=== PATIENT | female | born 1955 | race Caucasian/White ===

== ENCOUNTER 2021-07-08 06:30 | Inpatient (IN) | payer MEDICARE ==
[2021-07-08] MEDS ORDERED: Povidone-Iodine 10% Soln 118.25 ML Bottle ONE (06:51)
[2021-07-08] MEDS ORDERED: Lactated Ringers 1,000 ML IV SCH (07:00)
[2021-07-08] MEDS ORDERED: fentaNYL 100 MCG/2 ML SDV ONE (07:27)
[2021-07-08] MEDS ORDERED: Midazolam 1 MG/ML 2 ML SDV ONE ×2 (07:27→10:01)
[2021-07-08] MEDS ORDERED: Propofol 200 MG/20 ML SDV ONE ×2 (07:27→09:45)
[2021-07-08] MEDS ORDERED: diphenhydrAMINE 50 MG/ML SDV ONE (07:29)
[2021-07-08] MEDS ORDERED: Nozin Nasal Sanitizer NASBOTH ONE (07:30)
[2021-07-08] MEDS ORDERED: ceFAZolin 2 GM in Premix Bag 1 BAG IV ONE (08:30)
[2021-07-08] MEDS ORDERED: SODIUM CHLORIDE 0.9% IV ONE (08:30)
[2021-07-08] MEDS ORDERED: TRANEXAMIC ACID IV ONE (08:30)
[2021-07-08] MEDS ORDERED: Lactated Ringers 1,000 ML ONE (09:00)
[2021-07-08] MEDS ORDERED: Magnesium Hydroxide 400 MG/5 ML Susp 30 ML Cup PO PRN (10:50)
[2021-07-08] MEDS ORDERED: Acetaminophen/HYDROcodone 325-5 MG Tab PO PRN (10:50)
[2021-07-08] MEDS ORDERED: Morphine 2 MG/ML SYRINGE IVPUSH ONE (11:10)
[2021-07-08] MEDS: oxyCODONE 5 MG Tab PO PRN ×3 (12:16→21:59)
[2021-07-08] MEDS: Acetaminophen 325 MG Tab PO SCH ×2 (12:16→18:14)
[2021-07-08] MEDS: Ketorolac 30 MG/ML SDV IVPUSH PRN ×2 (13:00→19:49)
[2021-07-08] MEDS: Morphine 2 MG/ML SYRINGE IV PRN ×3 (13:01→15:09)
[2021-07-08] MEDS: Sodium Chloride 0.9% 1,000 ML IV SCH ×2 (14:06→22:25)
[2021-07-08] MEDS: ceFAZolin 1 GM in Premix Bag 1 BAG IV SCH (15:58)
[2021-07-08] MEDS ORDERED: HYDROmorphone 0.5 MG/0.5 ML Syringe IVPUSH PRN (16:07)
[2021-07-08] MEDS: Ondansetron 4 MG/2 ML SDV IVPUSH PRN (19:44)
[2021-07-08] MEDS: Nozin Nasal Sanitizer NASBOTH SCH (21:58)
[2021-07-08] MEDS: Docusate Sodium 100 MG Cap PO SCH (21:58)
[2021-07-08] MEDS: Pantoprazole 40 MG Tab.CR PO SCH (21:58)
[2021-07-08] MEDS: Rosuvastatin 10 MG Tab PO SCH (21:59)
[2021-07-09] MEDS: Acetaminophen 325 MG Tab PO SCH ×4 (00:52→21:13)
[2021-07-09] MEDS: ceFAZolin 1 GM in Premix Bag 1 BAG IV SCH ×2 (00:52→07:32)
[2021-07-09] MEDS: oxyCODONE 5 MG Tab PO PRN ×5 (02:08→18:31)
[2021-07-09] MEDS: Ketorolac 30 MG/ML SDV IVPUSH PRN ×2 (05:52→21:19)
[2021-07-09] MEDS: Ondansetron 4 MG/2 ML SDV IVPUSH PRN (07:36)
--- NOTE | 2021-07-09 08:12 | PCM.SURGPN ---
- General Info Date of Service: 07/09/21 Date of Surgery/Procedure: 07/08/21 POD#: 1 Post-Op Diagnosis: s/p L ALBIN Admission Diagnosis/Problem: Hip pain (s/p left total hip arthroplasty ) Functional Status: Reports: Pain Controlled, Ambulating ([facility] FWW x1 assist ) - Review of Systems General: Denies: Fever, Fatigue, Chills HEENT: Denies: Visual Changes Pulmonary: Denies: Shortness of Breath Cardiovascular: Denies: Chest Pain, Palpitations, Lightheadedness Gastrointestinal: Reports: Nausea. Denies: Vomiting Musculoskeletal: Reports: Leg Pain (left ), Joint Pain (left hip ) Skin: Reports: Bruising Neurological: Reports: No Symptoms Psychiatric: Reports: No Symptoms - Patient Data Vitals - Most Recent: Last Vital Signs Temp 97.4 F 07/09/21 07:00 Pulse 77 07/09/21 07:00 Resp 16 07/09/21 07:00 BP 116/56 L 07/09/21 07:00 Pulse Ox 91 L 07/09/21 07:00 Weight - Most Recent: 153 lb I&O - Last 24 Hours: Intake & Output 07/08/21 07/09/21 07/09/21 22:59 06:59 14:59 Intake Total 441 1925 Output Total 500 1775 Balance -59 150 Lab Results Last 24 Hrs: Laboratory Results - last 24 hr 07/09/21 Range/Units 04:56 WBC 5.4 (4.5-11.0) K/uL RBC 3.69 (3.30-5.50) M/uL Hgb 11.1 L (12.0-15.0) g/dL Hct 34.6 L (36.0-48.0) % MCV 94 (80-98) fL MCH 30 (27-31) pg MCHC 32 (32-36) % Plt Count 195 (150-400) K/uL Med Orders - Current: Current Medications Acetaminophen (Acetaminophen 325 Mg Tab) 650 mg PO Q6H [facility] Last Admin: 07/09/21 05:54 Dose: 650 mg Documented by: Hydrocodone Bitart/Acetaminophen (Acetaminophen/Hydrocodone 325-5 Mg Tab) 1 tab PO Q3H PRN PRN Reason: Pain (mild 1-3) Bandage/Support Products (Nozin Nasal [place]) 1 applic NASBOTH BID [facility] Stop: 07/15/21 21:01 Last Admin: 07/08/21 21:58 Dose: 1 applic Documented by: Docusate Sodium (Docusate Sodium 100 Mg Cap) 100 mg PO BID [facility] Last Admin: 07/08/21 21:58 Dose: 100 mg Documented by: Enoxaparin Sodium (Enoxaparin 30 Mg/0.3 Ml Syringe) 30 mg SUBCUT DAILY [facility] Fluticasone Propionate (Fluticasone Propionate Nasal [place] 16 Gm Bottle) 0 gm DONALD DAILY [facility] Hydromorphone HCl (Hydromorphone 0.5 Mg/0.5 Ml Syringe) 0.5 mg IVPUSH Q4H PRN PRN Reason: Breakthrough Pain Last Admin: 07/08/21 16:19 Dose: 0.5 mg Documented by: Lactated Ringer's (Ringers, Lactated) 1,000 mls @ 75 mls/hr IV ASDIRECTED [facility] Last Admin: 07/08/21 07:40 Dose: 75 mls/hr Documented by: Sodium Chloride (Normal Saline) 1,000 mls @ 125 mls/hr IV ASDIRECTED [facility] Last Admin: 07/08/21 22:25 Dose: 125 mls/hr Documented by: Cefazolin Sodium/Dextrose 1 gm (/ Premix) 50 mls @ 200 mls/hr IV Q8H [facility] Stop: 07/09/21 08:14 Last Admin: 07/09/21 07:32 Dose: 200 mls/hr Documented by: Ketorolac Tromethamine (Ketorolac 30 Mg/Ml Sdv) 15 mg IVPUSH Q6H PRN PRN Reason: Breakthrough Pain Stop: 07/13/21 10:55 Last Admin: 07/09/21 05:52 Dose: 15 mg Documented by: Magnesium Hydroxide (Magnesium Hydroxide 400 Mg/5 Ml Susp 30 Ml Cup) 30 ml PO Q6H PRN PRN Reason: Stool Softener Ondansetron HCl (Ondansetron 4 Mg/2 Ml Sdv) 4 mg IVPUSH Q6H PRN PRN Reason: Nausea/Vomiting Last Admin: 07/09/21 07:36 Dose: 4 mg Documented by: Oxycodone HCl (Oxycodone 5 Mg Tab) 5 - 10 mg PO Q4H PRN PRN Reason: Pain Last Admin: 07/09/21 06:05 Dose: 10 mg Documented by: Pantoprazole Sodium (Pantoprazole 40 Mg Tab.Cr) 40 mg PO BEDTIME MEI Last Admin: 07/08/21 21:58 Dose: 40 mg Documented by: Rosuvastatin Calcium (Rosuvastatin 10 Mg Tab) 20 mg PO BEDTIME MEI Last Admin: 07/08/21 21:59 Dose: 20 mg Documented by: Discontinued Medications Bandage/Support Products (Nozin Nasal [place]) 1 applic NASBOTH ONETIME ONE Stop: 07/08/21 07:31 Last Admin: 07/08/21 07:24 Dose: 1 applic Documented by: Diphenhydramine HCl (Diphenhydramine 50 Mg/Ml Sdv) Confirm Administered Dose 50 mg .ROUTE .STK-MED ONE Stop: 07/08/21 07:30 Fentanyl (Fentanyl 100 Mcg/2 Ml Sdv) Confirm Administered Dose 100 mcg .ROUTE .STK-MED ONE Stop: 07/08/21 07:28 Cefazolin Sodium/Dextrose 2 gm (/ Premix) 50 mls @ 100 mls/hr IV ONETIME ONE Stop: 07/08/21 08:59 Last Admin: 07/08/21 08:45 Dose: 100 mls/hr Documented by: Tranexamic Acid 710 mg/ Sodium (Chloride) 57.1 mls @ 228 mls/hr IV ONETIME ONE Stop: 07/08/21 08:45 Last Admin: 07/08/21 13:55 Dose: Not Given Documented by: Lactated Ringer's (Ringers, Lactated) Confirm Administered Dose 1,000 mls @ as directed .ROUTE .STK-MED ONE Stop: 07/08/21 09:01 Midazolam HCl (Midazolam 1 Mg/Ml 2 Ml Sdv) Confirm Administered Dose 2 mg .ROUTE .STK-MED ONE Stop: 07/08/21 07:28 Midazolam HCl (Midazolam 1 Mg/Ml 2 Ml Sdv) Confirm Administered Dose 2 mg .ROUTE .STK-MED ONE Stop: 07/08/21 10:02 Morphine Sulfate (Morphine 2 Mg/Ml Syringe) 1 mg IV Q1H PRN PRN Reason: Breakthrough Pain Last Admin: 07/08/21 15:09 Dose: 1 mg Documented by: Morphine Sulfate (Morphine 2 Mg/Ml Syringe) 1 mg IVPUSH ONETIME ONE Stop: 12/01/21 11:11 Last Admin: 07/08/21 11:14 Dose: 1 mg Documented by: Povidone Iodine (Povidone-Iodine 10% Soln 118.25 Ml Bottle) Confirm Administered Dose 1 ml .ROUTE .STK-MED ONE Stop: 07/08/21 06:52 Last Admin: 07/08/21 09:52 Dose: 1 ml Documented by: Propofol (Propofol 200 Mg/20 Ml Sdv) Confirm Administered Dose 200 mg .ROUTE .STK-MED ONE Stop: 07/08/21 07:28 Propofol (Propofol 200 Mg/20 Ml Sdv) Confirm Administered Dose 200 mg .ROUTE .STK-MED ONE Stop: 07/08/21 09:46 - Exam Wound/Incisions: Healing Well, Dressing Dry and Intact, No Drainage Quality Assessment: Urine Catheter, DVT Prophylaxis General: Alert, Oriented, Cooperative, No Acute Distress Extremities: No Pedal Edema, Normal Capillary Refill, Leg Pain (left ), Limited Range of Motion, Increased Warmth (left hip ), Other (L tibial pulse, 2+. Dorsiflexion: 4/5. Plantar flexion: 5/5. ). No: Juana's Sign Skin: Dry, Intact, Ecchymosis Neurological: No New Focal Deficit Psy/Mental Status: Alert, Normal Affect, Normal Mood Sepsis Event Note - Evaluation Sepsis Screening Result: No Definite Risk - Focused Exam Vital Signs: Vital Signs Temp Pulse Resp BP Pulse Ox 07/09/21 07:00 97.4 F 77 16 116/56 L 91 L 07/09/21 02:13 94 L 07/09/21 02:10 97.9 F 76 14 132/51 L 90 L 07/08/21 22:26 97.9 F 69 16 122/77 92 L - Problem List & Annotations (1) Postoperative anemia SNOMED Code(s): 569184676, 302770046 Code(s): D64.9 - ANEMIA, UNSPECIFIED Status: Acute Current Visit: Yes (2) Status post total hip replacement, left SNOMED Code(s): 102094805732, 642851084085 Code(s): Z96.642 - PRESENCE OF LEFT ARTIFICIAL HIP JOINT Status: Acute Current Visit: Yes - Problem List Review Problem List Initiated/Reviewed/Updated: Yes - My Orders Last 24 Hours: Active Orders 24 hr Category Date Time Status Admission Status [Patient Status] [ADT] Routine ADT 07/09/21 08:00 Ordered Ambulate [RC] PER UNIT ROUTINE Care 07/08/21 10:51 Active Antiembolic Devices [RC] .Routine Care 07/08/21 07:30 Active Head of Bed Elevation [RC] ASDIRECTED Care 07/08/21 10:51 Active Neurovascular Check [RC] BID Care 07/08/21 10:51 Active Notify Provider Intake and Out [RC] ASDIRECTED Care 07/08/21 10:51 Active Notify Provider Vital Signs [RC] ASDIRECTED Care 07/08/21 10:51 Active Oxygen Therapy [RC] PRN Care 07/08/21 10:51 Active RT Incentive Spirometry [RC] Q1HWA Care 07/08/21 10:51 Active Remove Shore Catheter [Urinary Catheter Removal] [RC] Care 07/09/21 08:01 Ordered PER UNIT ROUTINE Up to Chair [RC] QID Care 07/08/21 10:51 Active VTE/DVT Education [RC] Click to Edit Care 07/08/21 10:51 Active Wound Care [RC] Q12H Care 07/08/21 10:51 Active Consult to Case Management/Doctor Of Nursing Practice [CONS] Cons 07/08/21 10:51 Active Routine OT Evaluation and Treatment [CONS] Routine Cons 07/08/21 10:54 Active PT Evaluation and Treatment [CONS] Routine Cons 07/08/21 10:51 Active PT Evaluation and Treatment [CONS] Routine Cons 07/08/21 10:51 Active Regular Diet [DIET] Diet 07/08/21 Lunch Active Pelvis 1V or 2V [CR] Routine Exams 07/08/21 10:49 Taken Acetaminophen [TylenoL] Med 07/08/21 12:00 Active 650 mg PO Q6H Acetaminophen/HYDROcodone [[place] 325-5 MG] Med 07/08/21 10:50 Active 1 tab PO Q3H PRN Docusate Sodium [Colace] Med 07/08/21 21:00 Active 100 mg PO BID Enoxaparin [Lovenox] Med 07/09/21 09:00 Active 30 mg SUBCUT DAILY Fluticasone Propionate [Flonase] Med 07/09/21 09:00 Active 0 gm DONALD DAILY HYDROmorphone [Dilaudid] Med 07/08/21 16:07 Active 0.5 mg IVPUSH Q4H PRN Ketorolac [Toradol] Med 07/08/21 10:55 Active 15 mg IVPUSH Q6H PRN Magnesium Hydroxide [Milk of Magnesia] Med 07/08/21 10:50 Active 30 ml PO Q6H PRN Nozin [ Nasal [place]] Med 07/08/21 21:00 Active 1 applic NASBOTH BID Ondansetron [Zofran] Med 07/08/21 10:50 Active 4 mg IVPUSH Q6H PRN Pantoprazole [ProTONIX] Med 07/08/21 21:00 Active 40 mg PO BEDTIME Rosuvastatin [Crestor] Med 07/08/21 21:00 Active 20 mg PO BEDTIME Sodium Chloride 0.9% [Normal Saline] 1,000 ml Med 07/08/21 11:00 Active IV ASDIRECTED ceFAZolin [Ancef] 1 gm Med 07/08/21 16:00 Active Premix Bag 1 bag IV Q8H oxyCODONE Med 07/08/21 10:56 Active 5 - 10 mg PO Q4H PRN Antiembolic Hose [OM.PC] Per Unit Routine Oth 07/08/21 10:51 Ordered Convert IV to Saline Lock [OM.PC] Routine Oth 07/09/21 08:02 Ordered DME for Inpatients [OM.PC] Routine Oth 07/08/21 10:51 Ordered DVT/VTE Prophylaxis Reflex [OM.PC] Routine Oth 07/08/21 10:51 Ordered Ice Therapy [OM.PC] Per Unit Routine Oth 07/08/21 10:51 Ordered Oral Care [OM.PC] Routine Oth 07/08/21 10:51 Ordered Sequential Compression Device [OM.PC] Routine Oth 07/08/21 10:51 Ordered COLBY Hose [Antiembolic Hose] [OM.PC] Routine Oth 07/08/21 07:30 Ordered Weight bearing status [OM.PC] Routine Oth 07/08/21 10:51 Ordered Resuscitation Status Routine Resus Stat 07/08/21 10:50 Ordered Medication Orders Acetaminophen (Acetaminophen 325 Mg Tab) 650 mg PO Q6H MEI Last Admin: 07/09/21 05:54 Dose: 650 mg Documented by: Admin: 07/09/21 00:52 Dose: 650 mg Documented by: Admin: 07/08/21 18:14 Dose: 650 mg Documented by: Admin: 07/08/21 12:16 Dose: 650 mg Documented by: KELVIN Hydrocodone Bitart/Acetaminophen (Acetaminophen/Hydrocodone 325-5 Mg Tab) 1 tab PO Q3H PRN PRN Reason: Pain (mild 1-3) Bandage/Support Products (Nozin Nasal [place]) 1 applic NASBOTH BID [facility] Stop: 07/15/21 21:01 Last Admin: 07/08/21 21:58 Dose: 1 applic Documented by: AMBER Docusate Sodium (Docusate Sodium 100 Mg Cap) 100 mg PO BID [facility] Last Admin: 07/08/21 21:58 Dose: 100 mg Documented by: AMBER Enoxaparin Sodium (Enoxaparin 30 Mg/0.3 Ml Syringe) 30 mg SUBCUT DAILY [facility] Fluticasone Propionate (Fluticasone Propionate Nasal [place] 16 Gm Bottle) 0 gm DONALD DAILY [facility] Hydromorphone HCl (Hydromorphone 0.5 Mg/0.5 Ml Syringe) 0.5 mg IVPUSH Q4H PRN PRN Reason: Breakthrough Pain Last Admin: 07/08/21 16:19 Dose: 0.5 mg Documented by: KELVIN Lactated Ringer's (Ringers, Lactated) 1,000 mls @ 75 mls/hr IV ASDIRECTED [facility] Last Admin: 07/08/21 07:40 Dose: 75 mls/hr Documented by: JESSICA Sodium Chloride (Normal Saline) 1,000 mls @ 125 mls/hr IV ASDIRECTED [facility] Last Admin: 07/08/21 22:25 Dose: 125 mls/hr Documented by: Infusion: 07/08/21 22:06 Dose: 125 mls/hr Documented by: Admin: 07/08/21 14:06 Dose: 125 mls/hr Documented by: KELVIN Cefazolin Sodium/Dextrose 1 gm (/ Premix) 50 mls @ 200 mls/hr IV Q8H [facility] Stop: 07/09/21 08:14 Last Admin: 07/09/21 07:32 Dose: 200 mls/hr Documented by: Infusion: 07/09/21 01:07 Dose: 200 mls/hr Documented by: Admin: 07/09/21 00:52 Dose: 200 mls/hr Documented by: Infusion: 07/08/21 16:13 Dose: 200 mls/hr Documented by: Admin: 07/08/21 15:58 Dose: 200 mls/hr Documented by: KELVIN Ketorolac Tromethamine (Ketorolac 30 Mg/Ml Sdv) 15 mg IVPUSH Q6H PRN PRN Reason: Breakthrough Pain Stop: 07/13/21 10:55 Last Admin: 07/09/21 05:52 Dose: 15 mg Documented by: Admin: 07/08/21 19:49 Dose: 15 mg Documented by: Admin: 07/08/21 13:00 Dose: 15 mg Documented by: KELVIN Magnesium Hydroxide (Magnesium Hydroxide 400 Mg/5 Ml Susp 30 Ml Cup) 30 ml PO Q6H PRN PRN Reason: Stool Softener Ondansetron HCl (Ondansetron 4 Mg/2 Ml Sdv) 4 mg IVPUSH Q6H PRN PRN Reason: Nausea/Vomiting Last Admin: 07/09/21 07:36 Dose: 4 mg Documented by: Admin: 07/08/21 19:44 Dose: 4 mg Documented by: AMBER Oxycodone HCl (Oxycodone 5 Mg Tab) 5 - 10 mg PO Q4H PRN PRN Reason: Pain Last Admin: 07/09/21 06:05 Dose: 10 mg Documented by: Admin: 07/09/21 02:08 Dose: 10 mg Documented by: Admin: 07/08/21 21:59 Dose: 10 mg Documented by: Admin: 07/08/21 17:06 Dose: 10 mg Documented by: Admin: 07/08/21 12:16 Dose: 10 mg Documented by: KELVIN Pantoprazole Sodium (Pantoprazole 40 Mg Tab.Cr) 40 mg PO BEDTIME MEI Last Admin: 07/08/21 21:58 Dose: 40 mg Documented by: AMBER Rosuvastatin Calcium (Rosuvastatin 10 Mg Tab) 20 mg PO BEDTIME MEI Last Admin: 07/08/21 21:59 Dose: 20 mg Documented by: [id number] - Assessment Assessment (Free Text/Narrative):: Patient is pleasant 66-year-old female, status post left total hip arthroplasty, postop day #1. Patient tolerated surgery well with no complications. No acute events overnight. Patient has remained hemodynamically stable thus far in the postoperative period. Postoperative day #1 hemoglobin declined to 11.1. Patient has been asymptomatic with this; denied lightheadedness with transfer from bed to chair, shortness of breath, nor vision changes. Patient also denied subjective fevers, chills, chest pain, palpitations, fatigue, or calf pain this morning. Patient had a difficult time obtaining adequate pain control following surgery yesterday evening. Patient does report that pain is under better control this morning at rest. Has been tolerating regular diet well. Does endorse several episodes of nausea without emesis, each episode resolved with zofran. Patient did participate in physical therapy yesterday evening following surgery. Patient performed exercises and stretches to left lower extremity in bed. Ambulated 15 feet with FWW and x1 assist. Patient did transfer twice from bed to chair with FWW and x2 assist. Does require assistance with lifting left leg into and out of bed. Patient requires inpatient status at this time to progress functional mobility of left lower extremity for safe discharge to home. Additionally, requiring adequate pain control with oral medications prior to discharge. Plan: * Patient to participate in daily physical and occupational therapy services while in the hospital. Patient will work on stairs prior to discharge; she does have 3 stairs to enter home. * Stable with postoperative anemia at this time. Continue to monitor q4hr vitals and for any anemic symptoms. If patient does become symptomatic, may recheck a CBC. * Communication provided to nursing staff this morning to discontinue shore catheter and convert IV to saline lock. * Continue with current pain control regimen, with goal to transition to only oral medications. * Continue with 30 mg Lovenox subcutaneous daily for chemical DVT/VTE prophylaxis and bilateral lower extremity SCDs for mechanical DVT/VTE prophylaxis. * Anticipate dressing change on postop day #2 by orthopedic provider. * Anticipate discharge to son's home with outpatient physical therapy services when patient is medically stable, functional mobility of LLE improves, and pain is adequately controlled with oral medications.
[2021-07-09] MEDS ORDERED: Metoclopramide 10 MG/2 ML SDV IV PRN (08:36)
[2021-07-09] MEDS: Nozin Nasal Sanitizer NASBOTH SCH ×2 (09:27→21:00)
[2021-07-09] MEDS: Docusate Sodium 100 MG Cap PO SCH ×4 (09:28→21:14)
[2021-07-09] MEDS: Enoxaparin 30 MG/0.3 ML Syringe SUBCUT SCH (09:28)
[2021-07-09] MEDS: Fluticasone Propionate Nasal Spray 16 GM Bottle NAS SCH (09:28)
[2021-07-09] MEDS: Metoclopramide 10 MG Tab PO PRN (16:08)
[2021-07-09] MEDS: Pantoprazole 40 MG Tab.CR PO SCH (21:14)
[2021-07-09] MEDS: Rosuvastatin 10 MG Tab PO SCH (21:14)
[2021-07-10] MEDS: Acetaminophen 325 MG Tab PO SCH ×3 (00:57→11:13)
[2021-07-10] MEDS: Metoclopramide 10 MG Tab PO PRN (05:53)
[2021-07-10] MEDS: oxyCODONE 5 MG Tab PO PRN ×2 (07:41→12:24)
--- NOTE | 2021-07-10 08:07 | PCM.DCSUM1 ---
Discharge Summary - Hospital Course HPI Initial Comments: Patient is a pleasant 66 y/o female, history of cartilage defect on humeral head and worsening left hip pain over the past month. Failed conservative management and would like to proceed with total hip arthroplasty. Surgery performed on 07/08/21, tolerated surgery well with no complications. Remained hemodynamically stable in the post-operative period. See hospital course below for full details. Diagnosis: Stroke: No Modified [place] Scale: No Symptoms at All Modified Maria Esther Scale Score: 0 - Discharge Data Discharge Date: 07/10/21 Discharge Disposition: Home, Self-Care 01 Condition: Good - Referral to Home Health Date of Face to Face Encounter: 07/10/21 Primary Care Physician: MOLINA Retana - Discharge Diagnosis/Problem(s) (1) Status post total hip replacement, left SNOMED Code(s): 386407880040, [id number] ICD Code: Z96.642 - PRESENCE OF LEFT ARTIFICIAL HIP JOINT Status: Acute Current Visit: Yes (2) Postoperative anemia SNOMED Code(s): 527705140, [id number] ICD Code: D64.9 - ANEMIA, UNSPECIFIED Status: Acute Current Visit: Yes - Patient Summary/Data Operative Procedure(s) Performed: left total hip arthroplasty Consults: Consultations 07/08/21 10:51 Consult to Case Management/Shank Boner [CONS] Routine Comment: Physician Instructions: Discharge placement post hip surgery Service(s) to be Consulted: Case Management Special Instructions: anticipate d/c to home with outpatient PT when medically stable PT Evaluation and Treatment [CONS] Routine Please Evaluate and Treat. PT Reason for Consult: Ambulation Discharge Disposition: Home w Home Health Special Instructions: posterior hip precautions, WBAT This query below is only for informational purposes and is not editable. PT Evaluation and Treatment [CONS] Routine Please Evaluate and Treat. PT Reason for Consult: Post op Ortho Surgery Hip Pending Discharge: Yes, 2- -3 days Special Instructions: Schedule first outpatient P.T. appointment 3 - 5 days post discharge This query below is only for informational purposes and is not editable. 07/08/21 10:54 OT Evaluation and Treatment [CONS] Routine Please Evaluate and Treat. OT Reason for Consult: ADL's Special Instructions: Status post Hip Surgery. WBAT This query below is only for informational purposes and is not editable. Hospital Course: Patient is a pleasant 66-year-old female, status post left total hip arthroplasty, postop day #2. Patient tolerated surgery very well with no complications. Patient had no acute events during hospitalization. Patient remained hemodynamically stable throughout the postoperative period. POD#1 HgB declined to 11.1. Patient was asymptomatic with this. Denied light headedness or dizziness with ambulation. Patient did have O2 saturations declined to 85% on the evening of postop day #1/into the morning of POD#2 and was placed on 2 L of O2 to maintain oxygen satu rations above 90% with sleep. Endorsed snoring and being a restless sleeper, denied any known sleep apnea issues or shortness of breath. O2 saturations above 90% on room air during the day and with activity. Patient participated daily in physical therapy and occupational therapy sessions. Patient's ambulation abilities progressed nicely, ambulating up to 158 feet with four-wheel walker and standby assist. Did complete 2 stairs safely prior to discharge. Patient used leg bag loader provided by occupational therapist to assist with transferring left leg into and out of bed. Patient is able to transition from bed to chair with leg bag loader and four-wheel walker. Able to complete ADLs with mild assistance. Patient initially had difficulties with adequate pain control the evening of surgery. Pain was well controlled thereafter and throughout postop day #1 and #2 with oral medications. Patient was nauseous throughout stay, did not seem to correlate to administration of pain medications. Patient took Reglan, which helped diminish nausea symptoms. Deleon catheter removed on postop day #1. IV maintenance fluids discontinued on postop day #1. Dressing change performed on postop day #2 by orthopedic provider. Patient demonstrated improved functional mobility of left lower extremity throughout stay. Was medically stable at time of discharge to home. - Patient Instructions Diet: Usual Diet as Tolerated Activity: Apply Ice, Full Weight Bearing, Rest and Relax Today Driving: Do Not Drive Showering/Bathing: May Shower Wound/Incision Care: Keep Operative Site/Wound Site Clean and Dry Notify Provider of: Fever, Increased Pain, Swelling and Redness, Drainage - Discharge Plan *PRESCRIPTION DRUG MONITORING PROGRAM REVIEWED*: Yes *COPY OF PRESCRIPTION DRUG MONITORING REPORT IN PATIENT LUCY: Not Applicable Prescriptions/Med Rec: Docusate Sodium [Colace] 100 mg PO BID PRN #14 capsule PRN Reason: Constipation oxyCODONE 5 mg PO Q6HR PRN #30 tab PRN Reason: Pain (Severe 7-10) Metoclopramide HCl [Reglan] 10 mg PO Q6H PRN #15 tablet PRN Reason: Nausea Home Medications: Home Meds Acetaminophen [Pain Relief] 650 mg PO ASDIRECTED PRN 09/07/13 [History] Omeprazole 40 mg PO BEDTIME 09/07/13 [History] Rosuvastatin [Crestor] 20 mg PO BEDTIME 09/07/13 [History] Ibuprofen 400 mg PO Q6H PRN 05/30/15 [History] Fluticasone Propionate [Flonase] 2 spray INH DAILY 07/08/21 [History] Docusate Sodium [Colace] 100 mg PO BID PRN #14 capsule 07/10/21 [Rx] Metoclopramide HCl [Reglan] 10 mg PO Q6H PRN #15 tablet 07/10/21 [Rx] oxyCODONE 5 mg PO Q6HR PRN #30 tab 07/10/21 [Rx] Oxygen Therapy Mode: Room Air Patient Handouts: Fall Prevention in the Home, Adult, [id number], Total Hip Replacement, Anterior, Care After, [id number], Preventing Problems After Surgery, How to Prevent Constipation After Surgery Referrals: Shaheen Ramirez PA [Ordering Only Provider] - 07/23/21 10:45 am (Please register 15 minutes early at the ER desk for your appointment.) Nicole Danielson, PT [Physical Therapist] - 07/14/21 1:00 pm (Please arrive 15 minutes early and register at ER desk) - Discharge Summary/Plan Comment DC Time >30 min.: No Total # of Minutes for Discharge Time: 20 Discharge Summary/Plan Comment: * Patient to discharge to son's home, which is all one level. Will participate in outpatient PT services. * Due to decreased O2 saturation and requiring O2 overnight, will place referral for sleep study. * Pain control: Patient encouraged to continue with scheduled tylenol at 650 mg q6 hrs and initiate scheduled 800 mg ibuprofen TID. Script sent for 5mg Oxycodone q6 hrs prn for breakthrough pain. Encouraged to continue with stool softener while on this medication. * Nausea: script sent for 10 mg PO Reglan q6 hrs prn. Encouraged to take pain medications with food. * DVT/VTE prophylaxis: reviewed warning signs of DVT and VTE with patient. Patient educated to take 1 aspirin BID for the following month. * Educated to continue with Nozin Nasal spray BID. * May remove dressing from left hip and shower. Leave steristrips on left hip and let water run over the top. Monitor incision for any drainage, warmth, or surrounding redness. Contact clinic with any concerns of SSI. * Follow up as scheduled in 2-weeks for post-operative visit. Encouraged to contact clinic with any concerns or questions that arise prior to scheduled apt. - General Info Date of Service: 07/10/21 Admission Dx/Problem (Free Text: s/p left total hip arthroplasty Functional Status: Reports: Pain Controlled, Tolerating Diet, Ambulating (with FWW ), Urinating - Review of Systems General: Denies: Fever, Malaise, Chills HEENT: Denies: Visual Changes Pulmonary: Denies: Shortness of Breath, Wheezing Gastrointestinal: Reports: Nausea. Denies: Vomiting Musculoskeletal: Reports: Leg Pain (left ), Joint Pain (left hip ) Skin: Reports: Bruising Neurological: Reports: No Symptoms Psychiatric: Reports: No Symptoms - Patient Data Vitals - Most Recent: Last Vital Signs Temp 97.7 F 07/10/21 07:38 Pulse 91 07/10/21 07:38 Resp 18 07/10/21 07:38 BP 144/64 H 07/10/21 07:38 Pulse Ox 93 L 07/10/21 07:38 Weight - Most Recent: 153 lb I&O - Last 24 hours: Intake & Output 07/09/21 07/10/21 07/10/21 22:59 06:59 14:59 Output Total 1500 1500 Balance -1500 -1500 Med Orders - Current: Current Medications Acetaminophen (Acetaminophen 325 Mg Tab) 650 mg PO Q6H [facility] Last Admin: 07/10/21 05:53 Dose: 650 mg Documented by: Hydrocodone Bitart/Acetaminophen (Acetaminophen/Hydrocodone 325-5 Mg Tab) 1 tab PO Q3H PRN PRN Reason: Pain (mild 1-3) Bandage/Support Products (Nozin Nasal Computer Lab Assistant) 1 applic NASBOTH BID MEI Stop: 07/15/21 21:01 Last Admin: 07/09/21 21:00 Dose: 1 applic Documented by: Docusate Sodium (Docusate Sodium 100 Mg Cap) 100 mg PO BID [facility] Last Admin: 07/09/21 21:14 Dose: 100 mg Documented by: Enoxaparin Sodium (Enoxaparin 30 Mg/0.3 Ml Syringe) 30 mg SUBCUT DAILY [facility] Last Admin: 07/09/21 09:28 Dose: 30 mg Documented by: Fluticasone Propionate (Fluticasone Propionate Nasal [place] 16 Gm Bottle) 0 gm DONALD DAILY [facility] Last Admin: 07/09/21 09:28 Dose: 2 spray Documented by: Hydromorphone HCl (Hydromorphone 0.5 Mg/0.5 Ml Syringe) 0.5 mg IVPUSH Q4H PRN PRN Reason: Breakthrough Pain Last Admin: 07/08/21 16:19 Dose: 0.5 mg Documented by: Lactated Ringer's (Ringers, Lactated) 1,000 mls @ 75 mls/hr IV ASDIRECTED [facility] Last Admin: 07/08/21 07:40 Dose: 75 mls/hr Documented by: Sodium Chloride (Normal Saline) 1,000 mls @ 125 mls/hr IV ASDIRECTED [facility] Last Admin: 07/08/21 22:25 Dose: 125 mls/hr Documented by: Ketorolac Tromethamine (Ketorolac 30 Mg/Ml Sdv) 15 mg IVPUSH Q6H PRN PRN Reason: Breakthrough Pain Stop: 07/13/21 10:55 Last Admin: 07/09/21 21:19 Dose: 15 mg Documented by: Magnesium Hydroxide (Magnesium Hydroxide 400 Mg/5 Ml Susp 30 Ml Cup) 30 ml PO Q6H PRN PRN Reason: Stool Softener Metoclopramide HCl (Metoclopramide 10 Mg Tab) 10 mg PO Q6H PRN PRN Reason: Nausea/Vomiting Last Admin: 07/10/21 05:53 Dose: 10 mg Documented by: Ondansetron HCl (Ondansetron 4 Mg/2 Ml Sdv) 4 mg IVPUSH Q6H PRN PRN Reason: Nausea/Vomiting Last Admin: 07/09/21 07:36 Dose: 4 mg Documented by: Oxycodone HCl (Oxycodone 5 Mg Tab) 5 - 10 mg PO Q4H PRN PRN Reason: Pain Last Admin: 07/10/21 07:41 Dose: 10 mg Documented by: Pantoprazole Sodium (Pantoprazole 40 Mg Tab.Cr) 40 mg PO BEDTIME [facility] Last Admin: 07/09/21 21:14 Dose: 40 mg Documented by: Rosuvastatin Calcium (Rosuvastatin 10 Mg Tab) 20 mg PO BEDTIME [facility] Last Admin: 07/09/21 21:14 Dose: 20 mg Documented by: Discontinued Medications Bandage/Support Products (Nozin Nasal Computer Lab Assistant) 1 applic NASBOTH ONETIME ONE Stop: 07/08/21 07:31 Last Admin: 07/08/21 07:24 Dose: 1 applic Documented by: Diphenhydramine HCl (Diphenhydramine 50 Mg/Ml Sdv) Confirm Administered Dose 50 mg .ROUTE .STK-MED ONE Stop: 07/08/21 07:30 Fentanyl (Fentanyl 100 Mcg/2 Ml Sdv) Confirm Administered Dose 100 mcg .ROUTE .STK-MED ONE Stop: 07/08/21 07:28 Cefazolin Sodium/Dextrose 2 gm (/ Premix) 50 mls @ 100 mls/hr IV ONETIME ONE Stop: 07/08/21 08:59 Last Admin: 07/08/21 08:45 Dose: 100 mls/hr Documented by: Tranexamic Acid 710 mg/ Sodium (Chloride) 57.1 mls @ 228 mls/hr IV ONETIME ONE Stop: 07/08/21 08:45 Last Admin: 07/08/21 13:55 Dose: Not Given Documented by: Lactated Ringer's (Ringers, Lactated) Confirm Administered Dose 1,000 mls @ as directed .ROUTE .STK-MED ONE Stop: 07/08/21 09:01 Cefazolin Sodium/Dextrose 1 gm (/ Premix) 50 mls @ 200 mls/hr IV Q8H MEI Stop: 07/09/21 08:14 Last Admin: 07/09/21 07:32 Dose: 200 mls/hr Documented by: Metoclopramide HCl (Metoclopramide 10 Mg/2 Ml Sdv) 10 mg IV Q6H PRN PRN Reason: Nausea Last Admin: 07/09/21 08:53 Dose: 10 mg Documented by: Midazolam HCl (Midazolam 1 Mg/Ml 2 Ml Sdv) Confirm Administered Dose 2 mg .ROUTE .STK-MED ONE Stop: 07/08/21 07:28 Midazolam HCl (Midazolam 1 Mg/Ml 2 Ml Sdv) Confirm Administered Dose 2 mg .ROUTE .STK-MED ONE Stop: 07/08/21 10:02 Morphine Sulfate (Morphine 2 Mg/Ml Syringe) 1 mg IV Q1H PRN PRN Reason: Breakthrough Pain Last Admin: 07/08/21 15:09 Dose: 1 mg Documented by: Morphine Sulfate (Morphine 2 Mg/Ml Syringe) 1 mg IVPUSH ONETIME ONE Stop: 07/08/21 11:11 Last Admin: 07/08/21 11:14 Dose: 1 mg Documented by: Povidone Iodine (Povidone-Iodine 10% Soln 118.25 Ml Bottle) Confirm Administered Dose 1 ml .ROUTE .STK-MED ONE Stop: 07/08/21 06:52 Last Admin: 07/08/21 09:52 Dose: 1 ml Documented by: Propofol (Propofol 200 Mg/20 Ml Sdv) Confirm Administered Dose 200 mg .ROUTE .STK-MED ONE Stop: 07/08/21 07:28 Propofol (Propofol 200 Mg/20 Ml Sdv) Confirm Administered Dose 200 mg .ROUTE .STK-MED ONE Stop: 07/08/21 09:46 - Exam Quality Assessment: Reports: DVT Prophylaxis General: Reports: Alert, Oriented, Cooperative Extremities: Normal Capillary Refill, Leg Pain (left ), Limited Range of Motion, Other (tibial pulse, 2+. Sensation to LLE intact. Dorsiflexion: 4/5. Plantar flexion: 4/5. ). No: Pedal Edema, Juana's Sign Skin: Reports: Dry, Intact, Ecchymosis Wound/Incisions: Reports: Healing Well, Dressing Dry and Intact, No Drainage Neurological: Reports: No New Focal Deficit Psy/Mental Status: Reports: Alert, Normal Affect, Normal Mood
[2021-07-10] MEDS ORDERED: Bacitracin Oint 28.35 GM Tube TOP SCH (09:00)
--- NOTE | 2021-07-10 09:24 | CR ---
Pelvis 1V or 2V CLINICAL HISTORY: Pedis post left total hip arthroplasty FINDINGS: Patient is status post total left hip arthroplasty. Components appear well seated. There is a stable fixation suture around the greater trochanter. There is acetabular spurring in the right hip IMPRESSION: Total left hip arthroplasty
[2021-07-10] MEDS: Nozin Nasal Sanitizer NASBOTH SCH (09:28)
[2021-07-10] MEDS: Fluticasone Propionate Nasal Spray 16 GM Bottle NAS SCH (09:30)
[2021-07-10] MEDS: Docusate Sodium 100 MG Cap PO SCH (09:30)
[2021-07-10] MEDS: Enoxaparin 30 MG/0.3 ML Syringe SUBCUT SCH (09:31)
[2021-07-10 11:01] VITALS: BP 122/55; PULSE 77
--- NOTE | 2021-07-16 08:13 | OR ---
DATE OF PROCEDURE: 07/08/2021 SURGEON: Julius Salomon MD PREOPERATIVE DIAGNOSIS: Osteoarthritis, left hip. POSTOPERATIVE DIAGNOSES: 1. Osteoarthritis, left hip. 2. Nondisplaced fracture, left femoral neck calcar. PROCEDURE: Left total hip arthroplasty utilizing Bakari trabecular metal cup size 52 with neutral liner, M/L taper stem size 10 with a -3.5 neck length femoral head. BUS REPAIR SUPERVISOR: MOLINA Tobias ANESTHESIA: Spinal with sedation. INDICATIONS: Eva is a very pleasant 66-year-old female, who has had rapidly progressive left hip pain after a fall. X-ray reveals only [id number] degenerative changes. However, MRI reveals evidence of complete articular cartilage loss of the posterior-superior aspect of the acetabulum and femoral head with underlying subchondral edema in both locations. She now presents for left total hip arthroplasty. Risks, benefits, and potential complications of the procedure were discussed. After adequate anesthesia was obtained, the patient placed in lateral decubitus position and secured with the hip positioner. The left hip was prepped and draped in a sterile fashion. A longitudinal incision was made over the greater trochanter, carried down through the subcutaneous tissues, and hemostasis obtained with electrocautery. Tensor fascia split in line with its fibers and a Charnley retractor was placed. Short external rotators were taken off the greater trochanter posteriorly and hip is internally rotated revealing the capsule. Capsule was divided and moderate effusion is present. The capsule split in a T- fashion and the hip is dislocated. Retractors placed about the femoral neck and femoral neck was cut with an oscillating saw. Femoral head was removed revealing an area of complete articular cartilage loss as noted on the MRI. Retractors were placed about the acetabulum and the labrum is excised. Soft tissues removed from the central acetabulum. The acetabulum is then sequentially reamed to size 52. A 52 continuum cup was press-fit into position with good fit and additional fixation obtained with a single acetabular screw. The cup was irrigated and neutral liner was placed. Attention was returned to the femur. Box osteotome was used to remove the lateral femoral neck cortex. Hand awl was placed down the intramedullary canal along with a lateralizing reamer. The canal was then sequentially broached to a size 10 stem. This just slightly proud and the calcar was reamed to allow further seeding. The hip was trialed with a -3.5 neck length, which appeared to reproduce limb lengths and showed very good stability. The trials were removed. Once the broach was removed, a small nondisplaced crack in the medial calcar was noted. Cable was passed around the femoral neck and provisionally tightened. Size 10 stem was then press-fit into position, placed down along the neck cut and the table was retightened and crimped and cut. The hip was then reduced with a trial -3.5 neck length. At this time, it appeared to be slightly long and tight in extension. The hip was dislocated. The cable was cut and the stem was then tapped further down into the femur again using the calcar planer to remove a portion of the femoral neck. A new cable was placed around the femoral neck, provisionally tightened and a trial reduction again done. This showed better position and limb length appeared to be equal. The trial was removed. Cable was retentioned, crimped, and cut. The -3.5 neck length head was utilized once again and again taken through range of motion and found to be very stable. Wound was then irrigated with pulse lavage. This was followed by a dilute Betadine solution which was left in place for 2.5 minutes and irrigated a final time with a pulse lavage. The posterior capsule was closed with #2 Ethibond. Short external rotators reapproximated to the greater trochanter with #2 Ethibond. Tensor fascia was closed in interrupted fashion with #2 Ethibond. Skin was closed with 2-0 Vicryl and a running 3-0 Monocryl. Sterile dressing was applied. The patient tolerated the procedure very well. There were no complications. Taken from the operating room in stable condition. Julius Salomon MD /[id number]
== END 2021-07-10 14:00 | disposition home or self-care (01) | DRG 470 ==
LOC: JP.SDS 06:30 → JP.MS 11:45 → JP.SDS 07-09 08:00
PROVIDERS: ADMIT Physician Assistant Medical; ATTEND Specialist
PROC: 0SRB0JA Replacement of Left Hip Joint with Synthetic Substitute, Uncemented, Open Approach (ICD-10-PCS; principal; 2021-07-08)
DX: M16.12 Unilateral primary osteoarthritis, left hip (principal); E78.5 Hyperlipidemia, unspecified; K22.70 Barrett's esophagus without dysplasia; Z87.891 Personal history of nicotine dependence; D64.9 Anemia, unspecified
CPT/HCPCS: 36415; 72170; 72170-26; 85027; 86850; 86900; 86901; 97110-GP; 97116-GP; 97161-GP; 97165-GO; 97530-GP; 97535-GO; A9270-GY; C1713; C1776; J0690; J1170; J1200; J1650; J1885; J2250; J2270; J2405; J2704; J2765; J3010; J7030; J7120

== ENCOUNTER 2021-09-01 08:26 | Day surgery (SDC) | payer MEDICARE ==
[2021-09-01] MEDS ORDERED: Midazolam 1 MG/ML 2 ML SDV ONE (08:58)
[2021-09-01] MEDS ORDERED: Propofol 200 MG/20 ML SDV ONE (08:58)
[2021-09-01] MEDS ORDERED: fentaNYL 100 MCG/2 ML SDV ONE (08:58)
[2021-09-01] MEDS ORDERED: Dextrose 5%-Lactated Ringers 1,000 ML IV SCH (09:15)
[2021-09-01] MEDS ORDERED: Ampicillin/Sulbactam Na 3 GM in Sodium Chloride 0.9% 100 ML IV ONE (10:30)
[2021-09-01] MEDS ORDERED: Ondansetron 4 MG/2 ML SDV IVPUSH ONE (13:42)
[2021-09-01 13:57] VITALS: BP 144/73; PULSE 62
== END 2021-09-01 14:20 | disposition home or self-care (01) ==
LOC: JP.SDS 08:26
PROVIDERS: ATTEND Surgery
DX: K29.70 Gastritis, unspecified, without bleeding (principal); K22.70 Barrett's esophagus without dysplasia; K21.9 Gastro-esophageal reflux disease without esophagitis; E78.5 Hyperlipidemia, unspecified; I10 Essential (primary) hypertension; J45.909 Unspecified asthma, uncomplicated; Z98.84 Bariatric surgery status
CPT/HCPCS: 87081; 88305; J0295; J2250; J2405; J2704; J3010; J7121

== ENCOUNTER 2022-01-21 09:50 | Day surgery (SDC) | payer MEDICARE ==
[2022-01-21] MEDS ORDERED: fentaNYL 100 MCG/2 ML SDV ONE (10:37)
[2022-01-21] MEDS ORDERED: Propofol 200 MG/20 ML SDV ONE (10:37)
[2022-01-21] MEDS ORDERED: Midazolam 1 MG/ML 2 ML SDV ONE (10:37)
[2022-01-21] MEDS: Lactated Ringers 1,000 ML IV SCH (10:44)
[2022-01-21] MEDS ORDERED: Atropine 0.4 MG/ML SDV ONE (12:05)
[2022-01-21 13:27] VITALS: BP 101/62; PULSE 82
== END 2022-01-21 13:20 | disposition home or self-care (01) ==
LOC: JP.SDS 09:50
PROVIDERS: ATTEND Family Medicine
DX: Z12.11 Encounter for screening for malignant neoplasm of colon (principal); E78.5 Hyperlipidemia, unspecified; K21.9 Gastro-esophageal reflux disease without esophagitis; Z88.2 Allergy status to sulfonamides; Z98.890 Other specified postprocedural states; Z88.6 Allergy status to analgesic agent
CPT/HCPCS: J0461; J2250; J2704; J3010; J7120

== ENCOUNTER 2022-10-29 05:57 | Day surgery (SDC) | payer MEDICARE ==
[2022-10-29] MEDS ORDERED: Albuterol/Ipratropium 3.0-0.5 MG/3 ML Neb Soln NEB ONE (06:30)
[2022-10-29] MEDS ORDERED: Acetaminophen 500 MG Tab PO ONE (06:30)
[2022-10-29] MEDS ORDERED: Dextrose 5%-Lactated Ringers 1,000 ML IV SCH (06:30)
[2022-10-29] MEDS ORDERED: Lidocaine 1% with EPINEPHrine 1:100,000 50 ML MDV ONE (06:51)
[2022-10-29] MEDS ORDERED: Bupivacaine 0.5% 50 ML MDV ONE (06:51)
[2022-10-29] MEDS ORDERED: Midazolam 1 MG/ML 2 ML SDV ONE (07:05)
[2022-10-29] MEDS ORDERED: Propofol 200 MG/20 ML SDV ONE ×2 (07:05→08:27)
[2022-10-29] MEDS ORDERED: fentaNYL 100 MCG/2 ML SDV ONE (07:05)
[2022-10-29] MEDS ORDERED: ceFAZolin 2 GM in Premix Bag 1 BAG IV ONE (07:45)
[2022-10-29 09:46] VITALS: BP 125/60; PULSE 70
== END 2022-10-29 10:00 | disposition home or self-care (01) ==
LOC: JP.SDS 05:57
PROVIDERS: ATTEND Surgery
DX: D17.23 Benign lipomatous neoplasm of skin and subcutaneous tissue of right leg (principal); J45.909 Unspecified asthma, uncomplicated; I10 Essential (primary) hypertension; E66.9 Obesity, unspecified; Z88.2 Allergy status to sulfonamides; Z68.29 Body mass index [BMI] 29.0-29.9, adult
CPT/HCPCS: 27328; 88304; 94640; A9270; J0690; J2250; J2704; J3010; J3490; J7121; J7620

== ENCOUNTER 2022-11-29 06:15 | Day surgery (SDC) | payer MEDICARE ==
[2022-11-29] MEDS ORDERED: Dextrose 5%-Lactated Ringers 1,000 ML IV SCH (06:50)
[2022-11-29] MEDS ORDERED: Midazolam 1 MG/ML 2 ML SDV ONE (06:55)
[2022-11-29] MEDS ORDERED: fentaNYL 50 MCG/ML SDV ONE (06:55)
[2022-11-29] MEDS ORDERED: Propofol 200 MG/20 ML SDV ONE (06:55)
[2022-11-29] MEDS ORDERED: Glycopyrrolate 0.2 MG/ML 2 ML SDV IVPUSH ONE (07:00)
[2022-11-29 09:36] VITALS: BP 143/75; PULSE 78
== END 2022-11-29 09:47 | disposition home or self-care (01) ==
LOC: JP.SDS 06:15
PROVIDERS: ATTEND Surgery
DX: K44.9 Diaphragmatic hernia without obstruction or gangrene (principal); K31.A0 Gastric intestinal metaplasia, unspecified; K22.89 Other specified disease of esophagus; K22.10 Ulcer of esophagus without bleeding; K21.00 Gastro-esophageal reflux disease with esophagitis, without bleeding; J38.4 Edema of larynx; Z98.84 Bariatric surgery status
CPT/HCPCS: 43239; 87081; J2250; J2704; J3010; J3490; J7121; 88305

== ENCOUNTER 2022-12-03 07:29 | Inpatient (IN) | payer MEDICARE ==
[~2022-12-03 07:29] MED LIST: Bupivacaine 0.5% 50 ML MDV ONE; Dexamethasone 4 MG/ML SDV ONE; Glycopyrrolate 0.2 MG/ML 5 ML MDV ONE; Lidocaine 1% with EPINEPHrine 1:100,000 50 ML MDV ONE; Meropenem 500 MG SDV ONE; Neostigmine Methylsulfate 1 MG/ML 5 ML Syringe ONE; Ondansetron 4 MG/2 ML SDV ONE; Propofol 200 MG/20 ML SDV ONE; Rocuronium 50 MG/5 ML Vial ONE; Succinylcholine 200 MG/10 ML MDV ONE; fentaNYL 250 MCG/5 ML SDV ONE
[2022-12-03] MEDS ORDERED: Celecoxib 200 MG Cap PO ONE (07:30)
[2022-12-03] MEDS ORDERED: Scopolamine 1.5 MG Transdermal Patch TOP ONE (07:30)
[2022-12-03] MEDS ORDERED: Dextrose 5%-Lactated Ringers 1,000 ML IV SCH (08:00)
[2022-12-03] MEDS ORDERED: cefOXitin 2 GM in Sodium Chloride 0.9% 50 ML IV ONE (08:30)
[2022-12-03] MEDS ORDERED: Albuterol/Ipratropium 3.0-0.5 MG/3 ML Neb Soln NEB ONE (08:30)
[2022-12-03] MEDS ORDERED: Ketamine 500 MG/5 ML MDV IV SCH (09:00)
[2022-12-03] MEDS ORDERED: Ropivacaine 38 ML, dexAMETHasone 8 MG, EPINEPHrine 0.4 MG, Sodium Chloride 0.9% 39.6 ML NERVRT SCH ×4 (09:00)
[2022-12-03] MEDS ORDERED: Ketamine 15 MG in Sodium Chloride 0.9% 19.85 ML IV SCH (09:00)
[2022-12-03] MEDS ORDERED: fentaNYL 250 MCG/5 ML SDV ONE (09:53)
[2022-12-03] MEDS ORDERED: Lactated Ringers 1,000 ML ONE (10:46)
[2022-12-03] MEDS ORDERED: Ondansetron 4 MG/2 ML SDV IVPUSH PRN ×2 (11:14→14:00)
[2022-12-03] MEDS ORDERED: diphenhydrAMINE 50 MG/ML SDV IVPUSH PRN ×2 (11:14→14:00)
[2022-12-03] MEDS ORDERED: Naloxone 0.4 MG/ML SDV IVPUSH PRN (11:14)
[2022-12-03] MEDS ORDERED: diphenhydrAMINE 25 MG Cap PO PRN (11:14)
[2022-12-03] MEDS: HYDROmorphone/Normal Saline 6 MG/30 ML PCA Vial IV PRN (11:22)
[2022-12-03] MEDS ORDERED: Ondansetron 4 MG/2 ML SDV IVPUSH ONE (11:48)
[2022-12-03] MEDS ORDERED: hydrOXYzine HCl 50 MG/ML SDV IM ONE (11:48)
[2022-12-03] MEDS ORDERED: Ketorolac 30 MG/ML SDV IVPUSH ONE (11:59)
[2022-12-03] MEDS ORDERED: Naloxone 0.4 MG/ML SDV IV PRN (12:00)
[2022-12-03] MEDS ORDERED: Ketorolac 30 MG/ML SDV IM ONE ×2 (12:12→12:15)
[2022-12-03] MEDS ORDERED: Cyclobenzaprine 10 MG Tab PO PRN (13:29)
[2022-12-03] MEDS ORDERED: Metoclopramide 10 MG/2 ML SDV IVPUSH PRN (14:00)
[2022-12-03] MEDS ORDERED: hydrOXYzine HCl 50 MG/ML SDV IM PRN (14:00)
[2022-12-03] MEDS ORDERED: Acetaminophen 500 MG Tab PO PRN (14:00)
[2022-12-03] MEDS ORDERED: Albuterol/Ipratropium 3.0-0.5 MG/3 ML Neb Soln INH PRN (14:00)
[2022-12-03] MEDS ORDERED: Labetalol 20 MG/4 ML Syringe IVPUSH PRN (14:00)
[2022-12-03] MEDS: Dextrose 5%-Lactated Ringers 1,000 ML IV SCH (14:06)
[2022-12-03] MEDS: Albuterol/Ipratropium 3.0-0.5 MG/3 ML Neb Soln INH SCH ×2 (14:33→21:34)
[2022-12-03] MEDS: cefOXitin 2 GM in Sodium Chloride 0.9% 50 ML IV SCH ×2 (16:17→21:34)
[2022-12-03] MEDS: MVI, Adult with Vitamin K 10 ML, Thiamine 200 MG, Zinc/Copper/Manganese/Selenium 1 ML i... IV SCH ×4 (16:17)
[2022-12-03] MEDS: Ibuprofen 600 MG Tab PO SCH ×2 (16:22→21:34)
[2022-12-03] MEDS: Pantoprazole 40 MG Vial IVPUSH SCH (16:22)
[2022-12-03] MEDS: Acetaminophen 500 MG Tab PO SCH (17:35)
[2022-12-03] MEDS: Heparin Sodium 5,000 Units/ML Vial SUBCUT SCH (21:34)
[2022-12-04] MEDS: Acetaminophen 500 MG Tab PO SCH ×3 (01:08→18:18)
[2022-12-04] MEDS: cefOXitin 2 GM in Sodium Chloride 0.9% 50 ML IV SCH ×4 (04:36→21:37)
[2022-12-04] MEDS: Dextrose 5%-Lactated Ringers 1,000 ML IV SCH (04:36)
[2022-12-04] MEDS: Ibuprofen 600 MG Tab PO SCH ×4 (04:38→21:37)
[2022-12-04 05:01] LABS: ESTIMATED GFR 55 mL/min (>60)
[2022-12-04] MEDS ORDERED: Iopamidol 612 MG/ML 30 ML SDV PO ONE (05:07)
[2022-12-04 05:32] LABS: HEMOGLOBIN A1C 6.4 % (4.5-6.2)
[2022-12-04] MEDS: HYDROmorphone/Normal Saline 6 MG/30 ML PCA Vial IV PRN (06:59)
[2022-12-04] MEDS: Heparin Sodium 5,000 Units/ML Vial SUBCUT SCH ×2 (08:02→19:41)
[2022-12-04] MEDS: Loratadine 10 MG Tab.DIS PO SCH (08:03)
[2022-12-04] MEDS: Losartan 50 MG Tab PO SCH (08:03)
[2022-12-04] MEDS: Fluticasone NASAL Spray 16 GM Bottle NASBOTH SCH (08:03)
[2022-12-04] MEDS: SCOPOLAMINE PATCH CHECK TOP SCH (08:04)
[2022-12-04] MEDS: Albuterol/Ipratropium 3.0-0.5 MG/3 ML Neb Soln INH SCH ×4 (08:10→21:36)
[2022-12-04] MEDS: MVI, Adult with Vitamin K 10 ML, Thiamine 200 MG, Zinc/Copper/Manganese/Selenium 1 ML i... IV SCH ×4 (15:55)
[2022-12-04] MEDS: Pantoprazole 40 MG Vial IVPUSH SCH (16:26)
[2022-12-05] MEDS: Acetaminophen 500 MG Tab PO SCH ×3 (03:47→18:41)
[2022-12-05] MEDS: Ibuprofen 600 MG Tab PO SCH ×4 (03:47→21:48)
[2022-12-05] MEDS ORDERED: Lidocaine 1% with EPINEPHrine 1:100,000 50 ML MDV ONE (06:34)
[2022-12-05] MEDS ORDERED: Meropenem 500 MG SDV ONE (06:34)
[2022-12-05] MEDS ORDERED: Bupivacaine 0.5% 50 ML MDV ONE (06:34)
[2022-12-05] MEDS ORDERED: Propofol 200 MG/20 ML SDV ONE ×2 (07:12→07:38)
[2022-12-05] MEDS ORDERED: Ropivacaine 38 ML, dexAMETHasone 8 MG, EPINEPHrine 0.4 MG, Sodium Chloride 0.9% 39.6 ML NERVRT SCH ×4 (07:30)
[2022-12-05] MEDS: Albuterol/Ipratropium 3.0-0.5 MG/3 ML Neb Soln INH SCH ×4 (08:01→21:27)
[2022-12-05] MEDS ORDERED: Cyanocobalamin (Vitamin B12) 1,000 MCG/ML SDV IM ONE (09:00)
[2022-12-05] MEDS: SCOPOLAMINE PATCH CHECK TOP SCH (09:07)
[2022-12-05] MEDS: Heparin Sodium 5,000 Units/ML Vial SUBCUT SCH ×2 (09:08→21:44)
[2022-12-05] MEDS: Losartan 50 MG Tab PO SCH (09:09)
[2022-12-05] MEDS: Fluticasone NASAL Spray 16 GM Bottle NASBOTH SCH (09:10)
[2022-12-05] MEDS: Loratadine 10 MG Tab.DIS PO SCH (09:20)
[2022-12-05] MEDS ORDERED: Loratadine 10 MG Tab.DIS PO SCH (10:00)
[2022-12-05] MEDS: Dextrose 5%-Lactated Ringers 1,000 ML IV SCH (11:03)
[2022-12-05] MEDS: Pantoprazole 40 MG Vial IVPUSH SCH (15:50)
[2022-12-05] MEDS ORDERED: LORazepam 2 MG/ML SDV IVPUSH ONE (20:00)
[2022-12-05] MEDS ORDERED: Furosemide 20 MG/2 ML VIAL IVPUSH ONE (20:17)
[2022-12-05] MEDS ORDERED: Furosemide 20 MG/2 ML VIAL ONE (20:20)
[2022-12-05] MEDS ORDERED: Adenosine 6 MG/2 ML SDV IVPUSH ONE ×2 (20:31→20:56)
[2022-12-05] MEDS ORDERED: Metoprolol Tartrate 25 MG Tab ONE (21:13)
[2022-12-05] MEDS ORDERED: Metoprolol Tartrate 25 MG Tab PO SCH (21:30)
[2022-12-05] MEDS ORDERED: Magnesium Oxide 400 MG Tab PO SCH (22:00)
[2022-12-05] MEDS: Magnesium Sulfate/Water 2 GM in Premix Bag 1 BAG IV SCH (23:25)
[2022-12-06] MEDS: Acetaminophen 500 MG Tab PO SCH ×3 (01:52→18:17)
[2022-12-06] MEDS ORDERED: LORazepam 2 MG/ML SDV ONE (02:25)
[2022-12-06] MEDS: Dextrose 5%-Lactated Ringers 1,000 ML IV SCH (02:43)
[2022-12-06] MEDS ORDERED: Metoprolol Tartrate 25 MG Tab PO SCH (03:00)
[2022-12-06] MEDS: Ibuprofen 600 MG Tab PO SCH ×4 (03:19→21:16)
[2022-12-06] MEDS: Magnesium Sulfate/Water 2 GM in Premix Bag 1 BAG IV SCH (03:20)
[2022-12-06] MEDS ORDERED: HYDROmorphone 2 MG Tab PO PRN (07:00)
[2022-12-06] MEDS ORDERED: Potassium Phosphates 3 mMole/ML 15 ML SDV IV ONE (07:03)
[2022-12-06] MEDS: Albuterol/Ipratropium 3.0-0.5 MG/3 ML Neb Soln INH SCH ×4 (07:18→21:16)
[2022-12-06] MEDS ORDERED: Furosemide 20 MG/2 ML VIAL IVPUSH ONE (08:00)
[2022-12-06] MEDS: Heparin Sodium 5,000 Units/ML Vial SUBCUT SCH ×2 (08:11→21:16)
[2022-12-06] MEDS: Loratadine 10 MG Tab.DIS PO SCH (08:12)
[2022-12-06] MEDS: Fluticasone NASAL Spray 16 GM Bottle NASBOTH SCH (08:12)
[2022-12-06] MEDS: Losartan 50 MG Tab PO SCH (08:12)
[2022-12-06] MEDS: Metoprolol Succinate 25 MG Tab.ER PO SCH (08:47)
[2022-12-06] MEDS: Magnesium Sulfate/Water 2 GM/50 ML BAG IV SCH ×3 (08:50→19:25)
[2022-12-06] MEDS: Potassium Phos in 0.9 % NaCl 15 MMOL in Premix Bag 1 BAG IV SCH ×4 (11:04→15:44)
[2022-12-06] MEDS ORDERED: Pantoprazole 40 MG Delayed-Release Granules 1 Packet PO SCH (16:30)
[2022-12-07] MEDS: Acetaminophen 500 MG Tab PO SCH ×2 (01:24→09:50)
[2022-12-07] MEDS: Magnesium Sulfate/Water 2 GM/50 ML BAG IV SCH ×2 (01:24→07:31)
[2022-12-07] MEDS: Ibuprofen 600 MG Tab PO SCH ×2 (04:18→09:45)
[2022-12-07 04:43] LABS: ESTIMATED GFR 62 mL/min (>60)
[2022-12-07 05:29] VITALS: BP 139/68
[2022-12-07] MEDS: Albuterol/Ipratropium 3.0-0.5 MG/3 ML Neb Soln INH SCH ×2 (07:05→10:47)
[2022-12-07] MEDS: Heparin Sodium 5,000 Units/ML Vial SUBCUT SCH (09:42)
[2022-12-07] MEDS: Metoprolol Succinate 25 MG Tab.ER PO SCH (09:42)
[2022-12-07] MEDS: Fluticasone NASAL Spray 16 GM Bottle NASBOTH SCH (09:43)
[2022-12-07] MEDS: Loratadine 10 MG Tab.DIS PO SCH (09:44)
[2022-12-07] MEDS: Losartan 50 MG Tab PO SCH (09:44)
[2022-12-07 09:46] VITALS: PULSE 72
== END 2022-12-07 10:05 | disposition home or self-care (01) | DRG 327 ==
LOC: JP.SDS 07:29 → JP.MS 11:35 → UNDOADMIN 11:35 → JP.ICU 12-05 20:45 → JP.MS 12-05 20:45 → UNDODISIN 12-07 10:05
PROVIDERS: ADMIT Surgery; ATTEND Surgery
PROC: 0D150ZA Bypass Esophagus to Jejunum, Open Approach (ICD-10-PCS; principal; 2022-12-03)
PROC: 0FB20ZX Excision of Left Lobe Liver, Open Approach, Diagnostic (ICD-10-PCS; 2022-12-03)
PROC: 0DBA0ZZ Excision of Jejunum, Open Approach (ICD-10-PCS; 2022-12-03)
PROC: 0WUF0JZ Supplement Abdominal Wall with Synthetic Substitute, Open Approach (ICD-10-PCS; 2022-12-03)
PROC: 0WQF0ZZ Repair Abdominal Wall, Open Approach (ICD-10-PCS; 2022-12-05)
DX: K44.9 Diaphragmatic hernia without obstruction or gangrene (principal); I47.1 Supraventricular tachycardia; K21.9 Gastro-esophageal reflux disease without esophagitis; E78.5 Hyperlipidemia, unspecified; M19.90 Unspecified osteoarthritis, unspecified site; Z96.642 Presence of left artificial hip joint; E66.9 Obesity, unspecified; H54.7 Unspecified visual loss; E83.42 Hypomagnesemia; E78.00 Pure hypercholesterolemia, unspecified; Z90.49 Acquired absence of other specified parts of digestive tract; Z90.710 Acquired absence of both cervix and uterus; Z88.8 Allergy status to other drugs, medicaments and biological substances; Z98.890 Other specified postprocedural states; Z68.30 Body mass index [BMI] 30.0-30.9, adult; Z87.891 Personal history of nicotine dependence; Z88.2 Allergy status to sulfonamides
CPT/HCPCS: 36415; 74240; 74240-26; 80048; 80053; 83036; 83735; 83880; 84100; 84484; 85025; 86850; 86900; 86901; 88302; 88307; 94640; A9270-GY; C9113; J0131; J0153; J0171; J0330; J0694; J1100; J1170; J1644; J1885; J1940; J2020; J2060; J2185; J2405; J2704; J2710; J2795; J3010; J3410; J3411; J3420; J3475; J3490; J7120; J7121; J7620; Q9967

== ENCOUNTER 2022-12-21 08:59 | Day surgery (SDC) | payer MEDICARE ==
[2022-12-21] MEDS ORDERED: fentaNYL 50 MCG/ML SDV ONE ×2 (09:02→10:37)
[2022-12-21] MEDS ORDERED: Midazolam 1 MG/ML 2 ML SDV ONE (09:02)
[2022-12-21] MEDS ORDERED: Propofol 200 MG/20 ML SDV ONE (09:03)
[2022-12-21] MEDS ORDERED: Lactated Ringers 1,000 ML IV SCH (09:30)
[2022-12-21] MEDS ORDERED: Cyanocobalamin (Vitamin B12) 1,000 MCG/ML SDV IM ONE (10:00)
[2022-12-21] MEDS ORDERED: Scopolamine 1.5 MG Transdermal Patch TOP ONE (10:00)
[2022-12-21] MEDS ORDERED: Glycopyrrolate 0.2 MG/ML 2 ML SDV IVPUSH ONE (10:15)
[2022-12-21] MEDS ORDERED: MVI, Adult with Vitamin K 10 ML, Thiamine 200 MG, Zinc/Copper/Manganese/Selenium 1 ML i... IV ONE ×4 (10:30)
[2022-12-21] MEDS ORDERED: Dexamethasone 4 MG/ML SDV ONE (10:55)
[2022-12-21] MEDS ORDERED: Pantoprazole 40 MG Vial IVPUSH ONE (11:29)
[2022-12-21 12:51] VITALS: BP 115/56; PULSE 76
== END 2022-12-21 13:20 | disposition home or self-care (01) ==
LOC: JP.SDS 08:59
PROVIDERS: ATTEND Surgery
DX: K28.9 Gastrojejunal ulcer, unspecified as acute or chronic, without hemorrhage or perforation (principal); K21.9 Gastro-esophageal reflux disease without esophagitis; I10 Essential (primary) hypertension; Z88.2 Allergy status to sulfonamides; Z98.0 Intestinal bypass and anastomosis status; Z88.8 Allergy status to other drugs, medicaments and biological substances
CPT/HCPCS: 43233; A9270; C1726; C9113; J1100; J2704; J3010; J3411; J3420; J7120; J2250; J3490

== ENCOUNTER 2023-01-28 06:29 | Day surgery (SDC) | payer MEDICARE ==
[2023-01-28] MEDS ORDERED: Lactated Ringers 1,000 ML IV ONE (07:00)
[2023-01-28] MEDS ORDERED: Midazolam 1 MG/ML 2 ML SDV ONE (07:08)
[2023-01-28] MEDS ORDERED: fentaNYL 50 MCG/ML SDV ONE (07:08)
[2023-01-28] MEDS ORDERED: Propofol 200 MG/20 ML SDV ONE (07:08)
[2023-01-28] MEDS ORDERED: Cyanocobalamin (Vitamin B12) 1,000 MCG/ML SDV IM ONE (07:45)
[2023-01-28] MEDS ORDERED: Lactated Ringers 1,000 ML ONE (07:56)
[2023-01-28] MEDS ORDERED: MVI, Adult with Vitamin K 10 ML, Thiamine 200 MG, Zinc/Copper/Manganese/Selenium 1 ML i... IV ONE ×4 (08:00)
[2023-01-28] MEDS ORDERED: Dexamethasone 4 MG/ML SDV ONE (08:01)
[2023-01-28 10:26] VITALS: BP 162/72; PULSE 56
== END 2023-01-28 11:01 | disposition home or self-care (01) ==
LOC: JP.SDS 06:29
PROVIDERS: ATTEND Surgery
DX: K94.23 Gastrostomy malfunction (principal); G47.33 Obstructive sleep apnea (adult) (pediatric); I10 Essential (primary) hypertension; E78.5 Hyperlipidemia, unspecified; K22.70 Barrett's esophagus without dysplasia; Z79.899 Other long term (current) drug therapy; Z88.2 Allergy status to sulfonamides; Z88.6 Allergy status to analgesic agent; Z88.8 Allergy status to other drugs, medicaments and biological substances
CPT/HCPCS: 43247; 43249; C1726; J1100; J2250; J2704; J3010; J3411; J3420; J7120; J3490

== ENCOUNTER 2023-02-10 05:37 | Day surgery (SDC) | payer MEDICARE ==
[2023-02-10] MEDS ORDERED: Lactated Ringers 1,000 ML IV ONE (06:00)
[2023-02-10] MEDS ORDERED: Propofol 200 MG/20 ML SDV ONE (07:02)
[2023-02-10] MEDS ORDERED: Midazolam 1 MG/ML 2 ML SDV ONE (07:02)
[2023-02-10] MEDS ORDERED: fentaNYL 50 MCG/ML SDV ONE (07:02)
[2023-02-10] MEDS ORDERED: Dexamethasone 4 MG/ML SDV ONE (07:26)
[2023-02-10] MEDS ORDERED: MVI, Adult with Vitamin K 10 ML, Thiamine 200 MG, Zinc/Copper/Manganese/Selenium 1 ML i... IV ONE ×4 (08:00)
[2023-02-10 08:33] VITALS: BP 140/69; PULSE 60
[2023-02-10] MEDS ORDERED: Fluorescein 5 ML Vial ONE (10:44)
== END 2023-02-10 08:50 | disposition home or self-care (01) ==
LOC: JP.SDS 05:37
PROVIDERS: ATTEND Surgery
DX: K94.23 Gastrostomy malfunction (principal); I47.1 Supraventricular tachycardia; I10 Essential (primary) hypertension; E78.5 Hyperlipidemia, unspecified; K22.70 Barrett's esophagus without dysplasia; Z88.2 Allergy status to sulfonamides; Z79.899 Other long term (current) drug therapy; Z88.6 Allergy status to analgesic agent; Z88.8 Allergy status to other drugs, medicaments and biological substances
CPT/HCPCS: C1726; J1100; J2250; J2704; J3010; J3411; J3490; J7120

== ENCOUNTER 2023-03-03 15:22 | Emergency (ER) | payer MEDICARE ==
[2023-03-03 16:58] LABS: BASOPHILS ABSOLUTE AUTO 0.04 K/uL (0.00-0.10); BASOPHILS PERCENT AUTO 0.7 % (0.1-1.3); EOSINOPHILS ABSOLUTE AUTO 0.16 K/uL (0.00-0.40); EOSINOPHILS PERCENT AUTO 2.9 % (0.0-5.4); HEMATOCRIT 36.8 % (34.3-46.0); HEMOGLOBIN 12.2 g/dL (11.2-15.5); IMMATURE GRAN ABSOLUTE AUTO 0.01 K/uL (0.00-0.23); IMMATURE GRAN PERCENT AUTO 0.2 % (0.0-0.7); LYMPHOCYTES ABSOLUTE AUTO 2.15 K/uL (0.8-3.3); LYMPHOCYTES PERCENT AUTO 39.6 % (11.4-47.7); MEAN CORPUSCULAR HEMOGLOBIN 29.4 pg (31.6-35.5); MEAN CORPUSCULAR HGB CONC 33.2 g/dL (31.6-35.5); MEAN CORPUSCULAR VOLUME 88.7 fL (81.4-99.0); MONOCYTES ABSOLUTE AUTO 0.42 K/uL (0.20-0.90); MONOCYTES PERCENT AUTO 7.7 % (3.3-12.6); NEUTROPHILS ABSOLUTE AUTO 2.65 K/uL (1.0-7.6); NEUTROPHILS PERCENT AUTO 48.9 % (40.0-78.1); PLATELET COUNT,PLT 212 K/uL (130-375); RED BLOOD CELL COUNT 4.15 M/uL (3.77-5.24); WHITE BLOOD CELL COUNT,WBC 5.4 K/uL (3.2-11.0)
[2023-03-03] MEDS ORDERED: Sodium Chloride 0.9% 50 ML IV ONE (17:05)
[2023-03-03] MEDS ORDERED: Iopamidol 612 MG/ML 100 ML Bottle IV ONE (17:05)
[2023-03-03] MEDS ORDERED: Sodium Chloride 0.9% 10 ML Syringe FLUSH ONE (17:05)
[2023-03-03 17:21] LABS: A/G RATIO 1.3 (1.2-2.2); ALANINE AMINOTRANSFERASE,ALT 56 U/L (12-78); ALBUMIN 3.7 g/dL (3.4-5.0); ALKALINE PHOSPHATASE 87 U/L (46-116); ASPARTATE AMNIOTRANSFERASE,AST 33 U/L (15-37); BILIRUBIN TOTAL 2.6 mg/dL (0.2-1.0); BLOOD UREA NITROGEN,BUN 11 mg/dL (7-18); CALCIUM 9.3 mg/dL (8.5-10.1); CARBON DIOXIDE,CO2 30 mmol/L (21-32); CHLORIDE,CL 101 mmol/L (100-108); CREATININE 0.9 mg/dL (0.6-1.0); EST CRCL DRUG DOSING (CG) 52.38 mL/min; ESTIMATED GFR 70 mL/min (>60); GLUCOSE RANDOM 96 mg/dL (74-106); PROTEIN TOTAL,TP 6.6 g/dL (6.4-8.2); SODIUM,NA 142 mmol/L (140-148)
[2023-03-03 17:22] LABS: ANION GAP 13.7 mmol/L (5.0-14.0); POTASSIUM,K 2.7 mmol/L (3.6-5.2)
[2023-03-03] MEDS ORDERED: Potassium Chloride 10 MEQ in Premix Bag 1 BAG IV ONE (17:27)
[2023-03-03] MEDS ORDERED: Potassium Chloride 20 MEQ Tab.ER PO ONE (17:29)
[2023-03-03 18:23] VITALS: BP 126/64; PULSE 61
== END 2023-03-03 19:50 | disposition home or self-care (01) ==
LOC: JP.ED 15:22
DX: E80.6 Other disorders of bilirubin metabolism (principal); E87.6 Hypokalemia; I10 Essential (primary) hypertension; E78.00 Pure hypercholesterolemia, unspecified; E66.9 Obesity, unspecified; Z88.2 Allergy status to sulfonamides; Z88.6 Allergy status to analgesic agent; Z88.8 Allergy status to other drugs, medicaments and biological substances; Z79.899 Other long term (current) drug therapy; Z86.16 Personal history of COVID-19; Z87.891 Personal history of nicotine dependence
CPT/HCPCS: 36415; 74177; 80053; 85025; 96365; 99285; A9270; J3480; J3490; Q9967

== ENCOUNTER 2023-03-07 07:58 | Day surgery (SDC) | payer MEDICARE ==
[2023-03-07] MEDS ORDERED: Lactated Ringers 1,000 ML IV ONE (08:30)
[2023-03-07] MEDS ORDERED: Cyanocobalamin (Vitamin B12) 1,000 MCG/ML SDV IM ONE (08:30)
[2023-03-07 08:43] LABS: A/G RATIO 1.3 (1.2-2.2); ALANINE AMINOTRANSFERASE,ALT 45 U/L (12-78); ALBUMIN 3.5 g/dL (3.4-5.0); ALKALINE PHOSPHATASE 79 U/L (46-116); ASPARTATE AMNIOTRANSFERASE,AST 35 U/L (15-37); BLOOD UREA NITROGEN,BUN 7 mg/dL (7-18); CALCIUM 8.9 mg/dL (8.5-10.1); CARBON DIOXIDE,CO2 32 mmol/L (21-32); CHLORIDE,CL 105 mmol/L (100-108); CREATININE 0.8 mg/dL (0.6-1.0); EST CRCL DRUG DOSING (CG) 58.93 mL/min; ESTIMATED GFR 81 mL/min (>60); GLUCOSE RANDOM 90 mg/dL (74-106); POTASSIUM,K 3.3 mmol/L (3.6-5.2); PROTEIN TOTAL,TP 6.2 g/dL (6.4-8.2); SODIUM,NA 142 mmol/L (140-148)
[2023-03-07 08:48] LABS: ANION GAP 8.3 mmol/L (5.0-14.0)
[2023-03-07] MEDS ORDERED: fentaNYL 50 MCG/ML SDV ONE (08:50)
[2023-03-07] MEDS ORDERED: Midazolam 1 MG/ML 2 ML SDV ONE (08:50)
[2023-03-07] MEDS ORDERED: Propofol 200 MG/20 ML SDV ONE (08:51)
[2023-03-07] MEDS ORDERED: MVI, Adult with Vitamin K 10 ML, Zinc/Copper/Manganese/Selenium 1 ML, Thiamine 200 MG i... IV ONE ×4 (09:15)
[2023-03-07] MEDS ORDERED: Dexamethasone 4 MG/ML SDV ONE (10:39)
[2023-03-07 12:00] VITALS: BP 154/80; PULSE 68
== END 2023-03-07 12:37 | disposition home or self-care (01) ==
LOC: JP.SDS 07:58
PROVIDERS: ATTEND Surgery
DX: K22.2 Esophageal obstruction (principal); K21.9 Gastro-esophageal reflux disease without esophagitis; J40 Bronchitis, not specified as acute or chronic; I10 Essential (primary) hypertension; I49.9 Cardiac arrhythmia, unspecified; G47.33 Obstructive sleep apnea (adult) (pediatric); E78.5 Hyperlipidemia, unspecified
CPT/HCPCS: 36415; 43249; 80053; J1100; J2250; J2704; J3010; J3411; J3420; J7120; J3490

== ENCOUNTER 2023-04-29 07:55 | Day surgery (SDC) | payer MEDICARE ==
[~2023-04-29 07:55] MED LIST changes: -Bupivacaine 0.5% 50 ML MDV ONE; -Dexamethasone 4 MG/ML SDV ONE; -Glycopyrrolate 0.2 MG/ML 5 ML MDV ONE; -Lidocaine 1% with EPINEPHrine 1:100,000 50 ML MDV ONE; -Meropenem 500 MG SDV ONE; +Midazolam 1 MG/ML 2 ML SDV ONE; -Neostigmine Methylsulfate 1 MG/ML 5 ML Syringe ONE; -Ondansetron 4 MG/2 ML SDV ONE; -Rocuronium 50 MG/5 ML Vial ONE; -Succinylcholine 200 MG/10 ML MDV ONE; -fentaNYL 250 MCG/5 ML SDV ONE; +fentaNYL 50 MCG/ML SDV ONE
[2023-04-29] MEDS ORDERED: Dextrose 5%-Lactated Ringers 1,000 ML IV SCH (08:30)
[2023-04-29 11:41] VITALS: BP 141/77; PULSE 65
== END 2023-04-29 11:45 | disposition home or self-care (01) ==
LOC: JP.SDS 07:55
PROVIDERS: ATTEND Surgery
DX: K91.89 Other postprocedural complications and disorders of digestive system (principal); K22.2 Esophageal obstruction; G47.33 Obstructive sleep apnea (adult) (pediatric); I10 Essential (primary) hypertension; Z87.19 Personal history of other diseases of the digestive system; Z98.0 Intestinal bypass and anastomosis status; Z86.79 Personal history of other diseases of the circulatory system
CPT/HCPCS: 43249; J2250; J2704; J3010; J7121

== ENCOUNTER 2024-11-20 10:48 | Emergency (ER) | payer MEDICARE ==
[2024-11-20 11:07] VITALS: BP 170/81; PULSE 67
[2024-11-20] MEDS ORDERED: Sodium Chloride 0.9% 10 ML Syringe FLUSH PRN (11:51)
[2024-11-20 12:02] LABS: BASOPHILS ABSOLUTE AUTO 0.03 K/uL (0.00-0.10); BASOPHILS PERCENT AUTO 0.6 % (0.1-1.3); EOSINOPHILS ABSOLUTE AUTO 0.19 K/uL (0.00-0.40); EOSINOPHILS PERCENT AUTO 3.8 % (0.0-5.4); HEMATOCRIT 39.8 % (34.3-46.0); HEMOGLOBIN 13.1 g/dL (11.2-15.5); IMMATURE GRAN PERCENT AUTO 0.4 % (0.0-0.7); LYMPHOCYTES ABSOLUTE AUTO 1.38 K/uL (0.8-3.3); LYMPHOCYTES PERCENT AUTO 27.3 % (11.4-47.7); MEAN CORPUSCULAR HEMOGLOBIN 31.5 pg (31.6-35.5); MEAN CORPUSCULAR HGB CONC 32.9 g/dL (31.6-35.5); MEAN CORPUSCULAR VOLUME 95.7 fL (81.4-99.0); MONOCYTES ABSOLUTE AUTO 0.36 K/uL (0.20-0.90); MONOCYTES PERCENT AUTO 7.1 % (3.3-12.6); NEUTROPHILS ABSOLUTE AUTO 3.07 K/uL (1.0-7.6); NEUTROPHILS PERCENT AUTO 60.8 % (40.0-78.1); PLATELET COUNT,PLT 229 K/uL (130-375); RED BLOOD CELL COUNT 4.16 M/uL (3.77-5.24); WHITE BLOOD CELL COUNT,WBC 5.1 K/uL (3.2-11.0)
[2024-11-20 12:03] LABS: IMMATURE GRAN ABSOLUTE AUTO 0.02 K/uL (0.00-0.23)
[2024-11-20 12:25] LABS: A/G RATIO 1.2 (1.2-2.2); ALANINE AMINOTRANSFERASE,ALT 47 U/L (12-78); ALBUMIN 3.7 g/dL (3.4-5.0); ALKALINE PHOSPHATASE 97 U/L (46-116); ANION GAP 7.8 mmol/L (5.0-14.0); ASPARTATE AMNIOTRANSFERASE,AST 34 U/L (15-37); BLOOD UREA NITROGEN,BUN 12 mg/dL (7-18); CALCIUM 9.6 mg/dL (8.5-10.1); CARBON DIOXIDE,CO2 29 mmol/L (21-32); CHLORIDE,CL 104 mmol/L (100-108); CREATININE 0.7 mg/dL (0.6-1.0); ESTIMATED GFR 94 mL/min (>60); GLUCOSE RANDOM 97 mg/dL (74-106); POTASSIUM,K 3.9 mmol/L (3.6-5.2); PROTEIN TOTAL,TP 6.8 g/dL (6.4-8.2); SODIUM,NA 141 mmol/L (140-148); TROPONIN I HIGH SENSITIVITY 5.6 pg/mL (<=60.3)
[2024-11-20] MEDS: Sodium Chloride 0.9% 100 ML IV ONE (13:12)
[2024-11-20] MEDS: Iopamidol 755 Mg/ML 100 ML Bottle IV SCH (13:12)
[2024-11-20] MEDS: Sodium Chloride 0.9% 10 ML Syringe FLUSH PRN (13:12)
== END 2024-11-20 14:17 | disposition home or self-care (01) ==
LOC: JP.ED 10:48
DX: R26.81 Unsteadiness on feet (principal); I10 Essential (primary) hypertension; K21.9 Gastro-esophageal reflux disease without esophagitis; E66.9 Obesity, unspecified; Z88.2 Allergy status to sulfonamides; Z88.8 Allergy status to other drugs, medicaments and biological substances; Z79.899 Other long term (current) drug therapy; Z86.16 Personal history of COVID-19; Z90.49 Acquired absence of other specified parts of digestive tract; Z90.710 Acquired absence of both cervix and uterus
CPT/HCPCS: 36415; 70450; 70496; 70498; 80053; 84484; 85025; 93005; 99284; Q9967